=== PATIENT | female | born 1970 | race Caucasian/White ===

== ENCOUNTER → 2016-04-22 | Day surgery (SDC) | payer BC ==
[~2016-04-22] MED LIST: BENADRYL25 M3 PO; LISINOPRIL30 MG PO; NEXIUM20 MG PO; POTASSIUM GLUC500 MG PO
--- NOTE | ~2016-04-22 | OR ---
Unit #: [id number] #: [id number] Patient: JOHN SHORT [id number] [address] [address] [id number] O MR#: [id number] NAME: JOHN SHORT ROOM: Date of Procedure: 04/22/2016 Admission Date: 04/22/2016 Surgeon: Ki Barrios M.D. : 1970 Attending Physician: Ki Barrios M.D. Primary Care Physician: Shauna Pabon M.D. OPERATIVE REPORT PROCEDURE PERFORMED Colonoscopy with biopsies. INDICATIONS FOR PROCEDURE The patient with history of blood in the stool, chronic diarrhea, history of polyps in the past. MEDICATIONS Monitored anesthesia. POSTOPERATIVE FINDINGS 1. Colonoscopy to cecum and terminal ileum. Mucosa was normal and healthy. Terminal ileum was normal. Random biopsies taken. 2. Small internal hemorrhoids most likely the cause of bleeding. PLAN High-fiber diet. Stool softeners. Infrared treatment for hemorrhoids if needed. Follow up on the pathology report. DESCRIPTION OF PROCEDURE The patient was explained of the procedure, risks, and benefits along with risks and benefits of anesthesia. She was brought to the endoscopy room. Propofol anesthesia was given. Rectal exam was done, which was normal. Colonoscope was lubricated, passed up the rectum, advanced under direct vision all the way to the cecum. Cecum was identified by ileocecal valve and appendiceal orifice. I then started to pull the scope out carefully looking. Terminal ileum was intubated, shows normal mucosa. No polyps, masses, or colitis was seen. Random biopsies taken. I retroflexed in the rectum, internal hemorrhoids were noted. Gently, the scope was pulled out. She tolerated it well. No major complications were seen. Dictated by... Bentley Rondon/jamil TD: 04/23/2016 04:59 JOB #: [id number] Unit #: [id number] #: [id number] Patient: JOHN SHORT OPERATIVE REPORT X Ki Barrios MD PROCEDURE OPERATIVE NOTE
== END | disposition home or self-care (01) ==
LOC: COPS 09:19
DX: K52.9 Noninfective gastroenteritis and colitis, unspecified (principal); K64.8 Other hemorrhoids; F17.210 Nicotine dependence, cigarettes, uncomplicated; Z86.010 Personal history of colon polyps; Z91.040 Latex allergy status; Z79.899 Other long term (current) drug therapy; Z90.49 Acquired absence of other specified parts of digestive tract; Z98.51 Tubal ligation status; Z98.890 Other specified postprocedural states
CPT/HCPCS: 84703; 88305; J2250

== ENCOUNTER → 2016-08-09 | Day surgery (SDC) | payer BC ==
--- NOTE | ~2016-08-09 | EKG ---
PATIENT: JOHN SHORT UNIT #: [id number] Ventricular Rate: 97 BPM Atrial Rate: 97 BPM P-R Interval: 140 ms QRS Duration: 86 ms Q-T Interval: 358 ms QTC Calculation(Bezet): 454 ms P [place]: 59 degrees Calculated R [place]: 14 degrees Calculated T [place]: 43 degrees Diagnosis Line: Sinus rhythm Diagnosis Line: Normal ECG Diagnosis Line: Diagnosis Line: Confirmed by BELGICA GUEVARA MD ([id number]) on Diagnosis Line: 08/09/2016 9:20:30 PM INTERPRETING MD: MAEGAN
--- NOTE | ~2016-08-09 | OR ---
Unit #: [id number] #: [id number] Patient: JOHN SHORT [id number] [address] [address] [id number] MR#: [id number] NAME: JOHN SHORT ROOM: Date of Procedure: 08/09/2016 Admission Date: 08/09/2016 Surgeon: Ghassan Moreno M.D. : 1970 Attending Physician: Ghassan Moreno M.D. Referring Physician: Ghassan Moreno M.D. Primary Care Physician: Shauna Pabon M.D. OPERATIVE REPORT PREOPERATIVE DIAGNOSES History of posterior anal fissure, and internal and external hemorrhoids. POSTOPERATIVE DIAGNOSES History of posterior anal fissure, and internal and external hemorrhoids. PROCEDURES PERFORMED Rectal exam under anesthesia, open lateral internal sphincterotomy followed by Evans open hemorrhoidectomy x2 columns. ANESTHESIA General endotracheal anesthesia. ESTIMATED BLOOD LOSS 30 mL. INDICATIONS FOR PROCEDURE A 45-year-old female, who was initially evaluated by Dr. Hickman and started on nonoperative management for a posterior anal fissure and was also noted to have some symptomatic internal and external hemorrhoids. The patient failed to respond to nonoperative management and I was asked to see the patient for surgical intervention. I discussed the procedure including risks, benefits, complications, and postoperative expectations with the patient and she agreed to proceed. DESCRIPTION OF PROCEDURE The patient was admitted to [facility], positively identified, transported to the operating room, and after induction of general endotracheal anesthesia, she was placed in lithotomy position using candy-cane stirrups and received antibiotics per SCIP protocol. A rectal exam was performed and showed she had 2 columns of hemorrhoids that had a large external component with an associated internal component. The posterior anal fissure had no sentinel pile or induration and appeared to be an acute fissure. The patient was then prepped and draped in usual sterile fashion. The sphincter was dilated digitally and then the operating anoscope was placed. The larger of the 2 hemorrhoids on the right anterior position was grasped and elevated with Allis clamps and was dissected off the sphincter mechanism using a Harmonic Scalpel. Since this area was open, an open internal sphincterotomy was performed at this site by using a hemostat to tease up 1/2 to 2/3 of the internal sphincter muscle and these were divided using the cautery. I then closed the mucosal defect with 3-0 chromic running locked suture. There was Unit #: [id number] #: [id number] Patient: JOHN SHORT excellent hemostasis. In the left lateral position, there was another larger external and internal hemorrhoidal complex, it too was grasped with Allis clamps and dissected off the sphincter complex using the Harmonic Scalpel. There was excellent hemostasis. The defect in the anoderm and mucosa were small and this was left open to heal by secondary intention. No other symptomatic hemorrhoidal disease was seen. A perineal block with 0.5% Marcaine was performed. 2% lidocaine jelly and Gelfoam were placed in the surgical anal canal for postoperative hemostasis. Tracey-Pad and fishnet pants were placed. The patient was transported to recovery in stable condition. Findings and postoperative instructions were discussed with her fiance as requested. Prescriptions were left on the chart. Dictated by... Bentley Rausch/jamil TD: 08/10/2016 02:39 JOB #: [id number] OPERATIVE REPORT Page 1 of 1 X Ghassan Moreno MD X PROCEDURE OPERATIVE NOTE
== END | disposition home or self-care (01) ==
LOC: CSUR 05:43
DX: K64.8 Other hemorrhoids (principal); K64.4 Residual hemorrhoidal skin tags; K60.0 Acute anal fissure; I10 Essential (primary) hypertension; K21.9 Gastro-esophageal reflux disease without esophagitis; F17.200 Nicotine dependence, unspecified, uncomplicated; Z91.040 Latex allergy status
CPT/HCPCS: 84703; 88304; 93005; J1100; J1170; J2250; J2405; J2550; J3010